=== PATIENT | female | born 1970 ===

== ENCOUNTER 2023-01-17 06:21 | Day surgery (SDC) | payer OTHER ==
[~2023-01-17] VITALS: Ht 165.1 cm; Wt 81.2 kg
[~2023-01-17 06:21] MED LIST: ELIQUIS5 MG PO
[2023-01-17] MEDS ORDERED: PERCOCET 5-3251 EACH PO (10:55)
== END 2023-01-17 15:35 | disposition home or self-care (01) ==
LOC: CIR.AMB 06:21
PROVIDERS: ATTEND Surgery
DX: D35.1 Benign neoplasm of parathyroid gland (principal); E21.0 Primary hyperparathyroidism; Z20.822 Contact with and (suspected) exposure to COVID-19